=== PATIENT | female | born 1990 | race Caucasian/White ===

== ENCOUNTER 2023-01-20 10:19 | Outpatient (CLI) | payer BC, SELFPAY | END 2023-01-20 10:20 | disposition home or self-care (01) | PROVIDERS: Visit Provider Physician Assistant | DX: Z01.419 Encounter for gynecological examination (general) (routine) without abnormal findings (principal); Z13.6 Encounter for screening for cardiovascular disorders; Z13.1 Encounter for screening for diabetes mellitus; Z13.29 Encounter for screening for other suspected endocrine disorder | CPT/HCPCS: 80061; 82947; 84439; 84443 ==

== ENCOUNTER 2023-02-09 08:59 | Outpatient (CLI) | payer BC, SELFPAY ==
--- NOTE | 2023-02-09 09:15 | CRLHL7_ITS ---
For Patients: As a result of the Century Cures Act, medical imaging exams and procedure reports are released immediately into your electronic medical record. You may view this report before your referring provider. If you have questions, please contact your health care provider. INDICATION: FREQUENT PERIODS COMPARISON: none TECHNIQUE: 2D orr scale and color Doppler images were acquired of the pelvis using a transabdominal and transvaginal approach. FINDINGS: Sonographic images demonstrate a normal size and smooth outer contour of the uterus. Uterus measures 8.1 cm in length by 5.0 cm in AP diameter by 5.1 cm in transverse dimension. The myometrium has a normal uniform echotexture. The endometrial lining appears heterogeneous and measures 11 mm in composite thickness. The right ovary measures 3.6 x 1.9 x 2.5 cm in size and the left ovary measures 3.8 x 1.0 x 1.4 cm. The ovaries demonstrate normal arterial and venous blood flow on color Doppler analysis. Moderate pelvic free fluid. Hypoechoic right ovarian cyst measuring 1.6 x 1.3 x 1.6 cm. IMPRESSION: Hemorrhagic right ovarian cyst measuring 1.6 cm. Moderate pelvic free fluid. Heterogeneity of the endometrium which measures 11 millimeters. No uterine fibroid. Dictated by Fran Quezada MD @ 02/09/2023 10:08:56 AM (Electronically Signed)
== END 2023-02-09 09:00 | disposition home or self-care (01) ==
LOC: US 09:00
PROVIDERS: PCP Family Medicine; Visit Provider Physician Assistant
DX: N92.6 Irregular menstruation, unspecified (principal); N83.201 Unspecified ovarian cyst, right side; R93.89 Abnormal findings on diagnostic imaging of other specified body structures
CPT/HCPCS: 76830; 76856

== ENCOUNTER 2023-02-13 11:17 | Outpatient (CLI) | payer BC, SELFPAY ==
--- NOTE | 2023-02-13 11:59 | W.ANESCHARGE ---
Anesthesia Charges Start Date/Time Anesthesia Start Date: 02/13/23 Anesthesia Start Time: 12:20 Stop Date/Time Anesthesia Stop Date: 02/13/23 Anesthesia Stop Time: 12:45
[2023-02-13 12:18] LABS: Ur HCG Qualitative* Negative (Negative)
--- NOTE | 2023-02-13 12:55 | W.ANESCHARGE ---
Anesthesia Charges Start Date/Time Anesthesia Start Date: 02/13/23 Anesthesia Start Time: 12:20 Stop Date/Time Anesthesia Stop Date: 02/13/23 Anesthesia Stop Time: 12:45
== END 2023-02-13 11:18 | disposition home or self-care (01) ==
LOC: OP CLINIC 11:18
PROVIDERS: PCP Family Medicine; Visit Provider Surgery
DX: R19.8 Other specified symptoms and signs involving the digestive system and abdomen (principal)
CPT/HCPCS: 43239; 731; 81025; 88305

== ENCOUNTER 2023-02-24 09:11 | Outpatient (CLI) | payer BC, SELFPAY | END 2023-02-24 09:12 | disposition home or self-care (01) | LOC: NFLDREF 02-25 07:02 | PROVIDERS: PCP Family Medicine; Visit Provider Physician Assistant | DX: Z83.49 Family history of other endocrine, nutritional and metabolic diseases (principal) | CPT/HCPCS: 84443 ==

== ENCOUNTER 2023-03-08 10:49 | Outpatient (CLI) | payer BC, SELFPAY ==
--- NOTE | 2023-03-08 11:00 | CRLHL7_ITS ---
For Patients: As a result of the Century Cures Act, medical imaging exams and procedure reports are released immediately into your electronic medical record. You may view this report before your referring provider. If you have questions, please contact your health care provider. INDICATION: Postprandial pain TECHNIQUE: Ultrasound abdomen limited. Sonographic images of the right upper quadrant were obtained using orr-scale and color Doppler images. COMPARISON: None FINDINGS: Liver: Normal in size and echotexture. No masses. No intrahepatic biliary dilatation. Gallbladder: Cholelithiasis. Normal wall thickness. No pericholecystic fluid. Common bile duct: 4 mm. Pancreas: Normal. Right kidney: 11.7 cm. Normal echotexture and cortex. No masses, stones, or hydronephrosis. IMPRESSION: Cholelithiasis in an otherwise normal appearing gallbladder. Normal common bile duct. Dictated by Fran Gonzalez MD @ 03/08/2023 11:32:54 AM (Electronically Signed)
== END 2023-03-08 10:50 | disposition home or self-care (01) ==
LOC: US 10:50
PROVIDERS: PCP Family Medicine; Visit Provider Family Medicine
DX: R10.11 Right upper quadrant pain (principal); K80.20 Calculus of gallbladder without cholecystitis without obstruction; R10.13 Epigastric pain
CPT/HCPCS: 76705

== ENCOUNTER 2023-03-27 06:58 | Day surgery (SDC) | payer BC, SELFPAY ==
[2023-03-27] VITALS (19 sets, daily range): BP systolic 89–113; BP diastolic 48–71; PULSE 56–96; RESP 16–20; TEMP 36.7–37.1; O2SAT 90–99; BMI 22.4
[2023-03-27 07:20] LABS: Ur HCG Qualitative* Negative (Negative)
[2023-03-27] MEDS: LACTATED RINGERS 1000 ML 1,000 ML 100 ML IV ×2 (07:45→09:40)
[2023-03-27] MEDS: SODIUM CHLORIDE 0.9 % (FLUSH) 10 ML SYRINGE IVF (07:48)
[2023-03-27] MEDS: SCOPOLAMINE 1 MG/3 DAY PATCH 1 PATCH TRANSDERMA (08:43)
[2023-03-27] MEDS: CEFAZOLIN 2 GM INJ IVP (08:58)
--- NOTE | 2023-03-27 09:04 | W.ANESCHARGE ---
Anesthesia Charges Start Date/Time Anesthesia Start Date: 03/27/23 Anesthesia Start Time: 08:47 Stop Date/Time Anesthesia Stop Date: 03/27/23 Anesthesia Stop Time: 10:02
[2023-03-27] MEDS: BUPIVACAINE 0.25% 30 ML INJECTION (09:08)
--- NOTE | 2023-03-27 10:04 | P.GSOP_ITS ---
Operative Note Date of procedure: 03/27/23 Pre-op diagnosis: 1. Symptomatic cholelithiasis. Post-op diagnosis: Same Type of Procedure: 1. Laparoscopic cholecystectomy. Indications: 32-year-old female was seen in clinic with chronic epigastric pain that initially started 2 years ago. Recently, her painful episodes became more frequent. She described the episodes as epigastric pain starting 30 minutes after she ate. The painful episode would usually last up to 2 hours and then spontaneously resolve. The painful episodes were usually worse after eating a large meal or greasy food. Patient had a trial of proton pump inhibitor with no relief. She had an upper endoscopy in January of 2023 and that did not show peptic ulcer disease. On clinical exam patient had some discomfort with palpation in the right upper quadrant and epigastrium with negative Norwood sign. Given patient's clinical history and her physical exam, biliary colic was suspected and laparoscopic cholecystectomy was recommended. The procedure was discussed in detail. The risks associated procedure including infection, bleeding, injury to intra-abdominal organ, and injury to the common bile duct were all discussed with the patient and she agreed to proceed. Procedure Description: After discussing the risks and benefits of the procedure, the patient signed informed consent.? The operative site was marked and the patient was brought to the operating room and placed on the operating table in supine position.? Care was taken to pad the patient's pressure points.?? The patient was then intubated by anesthesia.?? The operative site was then prepped and draped in the usual sterile fashion.? A time-out was then performed. A 5-mm laparoscopy port was placed in the left upper quadrant guided by a 5-mm laparoscope placed into a translucent trochar.~ Passage through the layers of the abdominal wall was visualized with the laparoscope.~ A pneumoperitoneum was established. A 0-degree 5-mm laparoscope was advanced into the abdomen. The abdomen was briefly surveyed, and no adhesions were noted. A 10-mm port were placed infraumbilically and two more 5 mm ports were placed on the right under direct visualization by laparoscope. The camera was then changed to 10 mm 30- degree scope and placed into the abdomen through the 10 mm port. The left upper quadrant port entrance was examined and no injury to intra-abdominal organs was identified. The gallbladder was identified, the fundus grasped and retracted cephalad. The infundibulum was grasped and retracted laterally, exposing the peritoneum overlying the triangle of Calot. No acute inflammation was noted. The tissues in the triangle of Calot were divided and exposed in a blunt fashion and with hook cautery. Common bile duct was not identified but care was taken not to injure it. The cystic duct was clearly identified and bluntly dissected circumferentially. Cystic artery was identified and tissues around it were dissected off. The cystic artery and the cystic duct were clearly going into the gallbladder. The cystic duct was then doubly ligated with surgical clips on the patient's side and singly clipped on the gallbladder side and divided. The cystic artery was then similarly ligated with clips and divided as well. The cystic artery had a branch running posterior to the gallbladder. This branch was left alone initially. The course of this branch was then visualized during the dissection of the gallbladder off the liver, and the branch was clearly going into the gallbladder. This branch was then clipped with 5 mm clips and divided with cautery. The gallbladder was dissected from the liver bed in retrograde fashion using hookcautery. The gallbladder was placed into an Endo-Catch bag and removed through the infraumbilical incision. Surgical site was examined for bleeding. No bleeding was seen in the surgical field. The fascia of the infraumbilical incision was then closed with 0-0 vicryl. Muscle bleeding was noted from the right upper quadrant port and that was controlled with hook cautery. Pneumoperitoneum was completely reduced after viewing removal of the trocars under direct vision. The skin was then closed with 4-0 monocryl and steristrips were applied. Instrument, sponge, and needle counts were correct at closure and at the conc lusion of the case. The patient was transferred to PACU in stable condition. Findings: No acute inflammation was noted. Anesthesia: GETA Surgeon: Lamin Lopez MD Estimated blood loss (mL): 5 Specimen: Gallbladder Condition: stable Disposition: PACU
[2023-03-27] MEDS: METOCLOPRAMIDE HCL 5 MG/ML INJ 10 MG IVP (10:10)
[2023-03-27] MEDS: ONDANSETRON 2 MG/ML inj 4 MG IVP (10:14)
--- NOTE | 2023-03-27 10:15 | W.ANESCHARGE ---
Anesthesia Charges Start Date/Time Anesthesia Start Date: 03/27/23 Anesthesia Start Time: 08:47 Stop Date/Time Anesthesia Stop Date: 03/27/23 Anesthesia Stop Time: 10:02
--- NOTE | 2023-03-27 10:21 | SUR.PHASEI ---
Q-Easy patch applied to patients' gown at approximately 1010am to help treat/relieve nasuea symptoms.
== END 2023-03-27 12:33 | disposition home or self-care (01) ==
PROVIDERS: PCP Family Medicine; Visit Provider Surgery
PROC: 0FT44ZZ Resection of Gallbladder, Percutaneous Endoscopic Approach (ICD-10-PCS; CPT 47562; principal; 2023-03-27 08:15)
DX: K80.10 Calculus of gallbladder with chronic cholecystitis without obstruction (principal)
CPT/HCPCS: 47562; 00790; 81025; 88304; A9270; J0131; J0330; J0690; J1100; J1885; J2250; J2405; J2704; J2765; J3010; J3490; J7120

== ENCOUNTER 2024-06-07 10:33 | Outpatient (CLI) | payer BC, SELFPAY | END 2024-06-07 10:34 | disposition home or self-care (01) | LOC: NFLDREF 10:35 | PROVIDERS: PCP Family Medicine; Visit Provider Physician Assistant | DX: Z13.29 Encounter for screening for other suspected endocrine disorder (principal); Z13.1 Encounter for screening for diabetes mellitus; Z13.220 Encounter for screening for lipoid disorders | CPT/HCPCS: 80061; 82947; 84443 ==